=== PATIENT | male | born 1965 | race Caucasian/White ===

== ENCOUNTER 2017-09-20 20:39 | Inpatient (IN) | payer MEDICAID ==
[~2017-09-20] VITALS: Ht 162.6 cm; Wt 117.9 kg
[2017-09-20 20:44] VITALS: BP 186/98
[2017-09-20 21:38] LABS: ALBUMIN 3.5 g/dL (3.4-5.0); ANION GAP 10.4 (8-16); CARBON DIOXIDE 29.8 mmol/L (21-32); HEMATOCRIT 45.5 % (36-52); HEMOGLOBIN 15.2 g/dL (12.0-18.0); MEAN CORPUSCULAR HEMOGLOBIN 28 pg (27-31); MEAN CORPUSCULAR HGB CONC 34 g/dL (33-37); MEAN CORPUSCULAR VOLUME 85 fL (80-94); PLATELET COUNT (AUTO) 197 K/uL (140-450); POTASSIUM 4.2 mmol/L (3.5-5.1); RED BLOOD CELL COUNT(AUTO) 5.38 MIL/uL (4.20-6.10); RED CELL DISTRIBUTION WIDTH 13.4 % (11.6-13.7); TOTAL BILIRUBIN 0.4 mg/dL (0.0-1.0); WHITE BLOOD COUNT (AUTO) 7.8 K/uL (4.8-10.8)
[2017-09-20 21:39] LABS: BASOPHILS # (AUTO) 0.1 K/uL (0.00-0.22); BASOPHILS % (AUTO) 0.9 % (0.0-2.0); EOSINOPHILS # (AUTO) 0.3 K/uL (0-0.4); LYMPHOCYTES # (AUTO) 1.4 K/uL (2.0-11.5); LYMPHOCYTES % (AUTO) 17.8 % (20.5-51.1); MONOCYTES # (AUTO) 0.5 K/uL (0.8-1.0); MONOCYTES % (AUTO) 6.9 % (1.7-9.3); NEUTROPHILS # (AUTO) 5.5 K/uL (1.8-7.7); NEUTROPHILS % (AUTO) 70.4 % (42.2-75.2)
[2017-09-20] MEDS ORDERED: NACL 0.9% 1,000 ML IV ONE (22:25)
--- NOTE | 2017-09-20 22:26 | NUR ---
TO ER BED 3
--- NOTE | 2017-09-20 22:30 | NUR ---
PATIENT PRESENTS TO ED WITH CHEST PAIN WITH SOB, RADIATES TO LT. ARM X 1.5 HRS. HX.DM, HTN, HIGH CHOLESTEROL. PT CANNOT RECALL HOME MEDS/DOSE AT THIS TIME. DENIES N/V/D; AAOX4 WITH EVEN AND STEADY GAIT; PATIENT STATES PAIN OF 6/10 AT THIS TIME; PATIENT POSITIONED FOR COMFORT; HOB ELEVATED; BEDRAILS UP X2; BED DOWN. ER MD MADE AWARE OF PT STATUS.
--- NOTE | 2017-09-20 22:45 | NUR ---
Patient being evaluated by physician at bedside.
[2017-09-20] MEDS ORDERED: ASPIRIN 81 MG TAB.CHEW PO ONE (23:20)
[2017-09-20] MEDS ORDERED: NACL 0.9% 1,000 ML IV SCH (23:48)
[2017-09-20] MEDS ORDERED: ONDANSETRON 4 MG/2 ML VIAL IM/IVP PRN (23:50)
[2017-09-20] MEDS ORDERED: KETOROLAC 30 MG/ML VIAL IVP PRN (23:50)
[2017-09-20] MEDS ORDERED: HYDROcodone/APAP 7.5/325 MG 1 TAB PO PRN (23:50)
[2017-09-20] MEDS ORDERED: DOCUSATE SODIUM 100 MG GELCAP PO PRN (23:50)
[2017-09-20] MEDS ORDERED: HYDROmorphone 1 MG/ML AMP IVP PRN (23:50)
[2017-09-20] MEDS ORDERED: ACETAMINOPHEN 325 MG TAB PO PRN (23:50)
[2017-09-20] MEDS ORDERED: MORPHINE SULFATE 2 MG/ML SYR IVP PRN (23:50)
[2017-09-21 00:21] LABS: CHOL/HDL RATIO 4.3 (1-4.5); MAGNESIUM 2.1 mg/dL (1.8-2.4); PHOSPHORUS 3.8 mg/dL (2.5-4.9); THYROID STIMULATING HORMONE 2.78 uIU/mL (0.34-3.74)
--- NOTE | 2017-09-21 00:22 | NUR ---
PT ON ER HOLD PRE HOUSE SUP ELE
[2017-09-21 00:26] LABS: APPEARANCE,URINE CLEAR (CLEAR); BILIRUBIN,URINE NEGATIVE (NEGATIVE); BLOOD, URINE NEGATIVE (NEGATIVE); COLOR,URINE YELLOW (YELLOW); LEUKOCYTE ESTERASE ,URINE NEGATIVE (NEGATIVE); NITRITE, URINE NEGATIVE (NEGATIVE); UGLUCOSE 3+ (NEGATIVE)
[2017-09-21 00:30] LABS: BARBITURATE, URINE NEG. ng/ml (NEG <=200); BENZODIAZEPINE, URINE NEG. ng/mL (NEG <=200); CANNABINOID, URINE NEG. ng/mL (NEG <=50); COCAINE, URINE NEG. ng/mL (NEG <=300); OPIATE, URINE NEG. ng/mL (NEG <=2000); PHENCYCLIDINE SCREEN,URINE NEG. ng/mL (NEG <=25)
--- NOTE | 2017-09-21 01:15 | NUR ---
PER MELLISSA SUAREZ PT TO BE ON TELE HOLD UNTIL AM.
[2017-09-21 02:29] LABS: RBC,URINE NONE SEEN /HPF (0-5); WBC,URINE 0-5 (RARE) /HPF (0-5)
[2017-09-21] MEDS ORDERED: METOPROLOL 25 MG TAB PO SCH ×2 (02:42→09:00)
[2017-09-21] MEDS ORDERED: INSULIN LISPRO SLIDING SCALE 100 UNITS/ML VIAL SUBQ PRN (02:50)
[2017-09-21] MEDS ORDERED: DEXTROSE 50% 50 ML SYR IVP PRN (02:50)
[2017-09-21 07:04] LABS: CARBON DIOXIDE 29.2 mmol/L (21-32); CREATININE 0.8 mg/dL (0.7-1.3); POTASSIUM 4.2 mmol/L (3.5-5.1)
--- NOTE | 2017-09-21 07:17 | NUR ---
Patient will be admitted to care of . Admited to MED SURG FLOOR. Will go to room 104 A. Belongings list completed. Report to [facility].
[2017-09-21 07:30] VITALS: BP 142/82
[2017-09-21] MEDS ORDERED: BLOOD GLUCOSE MONITORING 1 DEV DEV FS SCH (07:30)
--- NOTE | 2017-09-21 07:30 | NUR ---
PATIENT ARRIVED ON MST UNIT VIA WHEELCHAIR FROM ER. ABLE TO AMBULATE FROM WHEELCHAIR TO MST BED WITH STEADY GAIT. NO DISTRESS NOTED. CHEST PAIN WITHIN TOLERABLE AT THIS TIME. AAOX4, CALM, COOPERATIVE, CENTRAL AFRICAN SPEAKING, SKIN COLOR APPROPRIATE TO ETHNICITY, WARM TO TOUCH. SKIN IS INTACT THROUGHOUT BODY. IV SITE INTACT, PATENT, ON SALINE LOCK AT THIS TIME. LUNGS CTA ON ALL LOBES. ABDOMEN SOFT, NON-DISTENDED. REVIEWED PLAN OF CARE WITH PATIENT. PATIENT VERBALIZED UNDERSTANDING. SAFETY MEASURES IN PLACE, CALL LIGHT WITHIN REACH. WILL CONTINUE TO MONITOR.
[2017-09-21] MEDS ORDERED: metFORMIN 850 MG TAB PO SCH (08:00)
[2017-09-21] MEDS ORDERED: LISINOPRIL 5 MG TAB PO SCH (09:00)
[2017-09-21] MEDS ORDERED: ECOTRIN 81 MG TABEC PO SCH (09:00)
[2017-09-21] MEDS ORDERED: ATORVASTATIN 80 MG TAB PO SCH (09:00)
--- NOTE | 2017-09-21 09:11 | NUR ---
PATIENT LYING DOWN IN BED SLEEPING,AROUSABLE BY VOICE. NO DISTRESS NOTED. DENIES ANY PAIN AT THIS TIME. SCHEDULED MEDICATIONS DUE GIVEN. IVF STARTED PER MD ORDERS. SAFETY MEASURES IN PLACE, CALL LIGHT WITHIN REACH. WILL CONTINUE TO MONITOR.
[2017-09-21 10:04] LABS: WHITE BLOOD COUNT (AUTO) 6.8 K/uL (4.8-10.8)
[2017-09-21 10:05] LABS: HEMATOCRIT 40.6 % (36-52); HEMOGLOBIN 13.8 g/dL (12.0-18.0); LYMPHOCYTES % (AUTO) 21.6 % (20.5-51.1); MEAN CORPUSCULAR HEMOGLOBIN 29 pg (27-31); MEAN CORPUSCULAR HGB CONC 34 g/dL (33-37); MEAN CORPUSCULAR VOLUME 84 fL (80-94); MONOCYTES % (AUTO) 7.7 % (1.7-9.3); NEUTROPHILS % (AUTO) 63.8 % (42.2-75.2); PLATELET COUNT (AUTO) 179 K/uL (140-450); RED BLOOD CELL COUNT(AUTO) 4.83 MIL/uL (4.20-6.10); RED CELL DISTRIBUTION WIDTH 13.6 % (11.6-13.7)
[2017-09-21 10:06] LABS: BASOPHILS # (AUTO) 0.1 K/uL (0.00-0.22); BASOPHILS % (AUTO) 0.8 % (0.0-2.0); EOSINOPHILS # (AUTO) 0.4 K/uL (0-0.4); EOSINOPHILS % (AUTO) 6.1 % (0.0-4.0); LYMPHOCYTES # (AUTO) 1.5 K/uL (2.0-11.5); MONOCYTES # (AUTO) 0.5 K/uL (0.8-1.0); NEUTROPHILS # (AUTO) 4.3 K/uL (1.8-7.7)
--- NOTE | 2017-09-21 10:06 | NUR ---
PATIENT HAS BEEN SCREENED AND CATEGORIZED HIGH NUTRITION RISK. PATIENT WILL BE SEEN WITHIN 1-2 DAYS OF ADMISSION. 09/20/17-09/21/[address]
--- NOTE | 2017-09-21 11:30 | NUR ---
PATIENT WISHES TO GO AMA DUE TO NO MORE CHEST PAIN AND CLAIMS THAT HE HAS THINGS TO DO AT HOME. DR. CASTANEDA NOTIFIED. DR. CASTANEDA AT BEDSIDE EXPLAINING THE RISKS OF GOING AMA WITH PATIENT. PATIENT VERBALIZED UNDERSTANDING AND WISHES TO CONTINUE TO LEAVE AMA. AMA CONSENT FORM SIGNED. ALL BELONGINGS WITH PATIENT. IV SITE REMOVED WITH MINIMAL BLOOD AND LUMEN COMPLETELY INTACT. ID BANDS REMOVED. PATIENT ABLE TO AMBULATE WITH STEADY GAIT AND WITHOUT ASSISTANCE. AWAITING FOR PATIENT TO GET DRESSED. WILL CONTINUE TO MONITOR.
--- NOTE | 2017-09-21 11:40 | NUR ---
PATIENT ALL DRESSED UP AND READY TO GO HOME. ALL BELONGINGS WITH PATIENT. ESCORTED PATIENT DOWN TO LOBBY VIA AMBULATION. PATIENT LEFT AMA AT THIS TIME.
== END 2017-09-21 11:40 | disposition left against medical advice (07) | DRG 243 ==
LOC: MED 20:39 → MTU 23:52
PROVIDERS: ADMIT Family Medicine Sports Medicine; ATTEND Family Medicine Sports Medicine
DX: K21.9 Gastro-esophageal reflux disease without esophagitis (principal); N17.0 Acute kidney failure with tubular necrosis; D68.59 Other primary thrombophilia; E11.65 Type 2 diabetes mellitus with hyperglycemia; E11.22 Type 2 diabetes mellitus with diabetic chronic kidney disease; I24.9 Acute ischemic heart disease, unspecified; M94.0 Chondrocostal junction syndrome [Tietze]; Z68.41 Body mass index [BMI] 40.0-44.9, adult; I77.6 Arteritis, unspecified; E66.01 Morbid (severe) obesity due to excess calories; E78.00 Pure hypercholesterolemia, unspecified; I12.9 Hypertensive chronic kidney disease with stage 1 through stage 4 chronic kidney disease, or unspecified chronic kidney disease; N18.9 Chronic kidney disease, unspecified; Z53.21 Procedure and treatment not carried out due to patient leaving prior to being seen by health care provider; E78.5 Hyperlipidemia, unspecified; Z95.5 Presence of coronary angioplasty implant and graft
CPT/HCPCS: 36415; 71045; 80048; 80053; 80305; 81001; 82948; 83036; 83735; 84100; 84436; 84443; 84479; 84484; 85025; 85610; 85730; 93005; 96360; 99285; J7030; Q0092